=== PATIENT | female | born 1995 | race African-American/Black ===

== ENCOUNTER 2021-06-16 07:40 | Inpatient (IN) ==
[2021-06-16] MEDS ORDERED: ACETAMINOPHEN 500 MG TABLET PO STA (08:08)
[2021-06-16 08:46] LABS: Bilirubin,Urine Negative (Negative); Blood, Urine Small mg/dL (Negative); Glucose,Urine (UA) Negative (Negative); Ketones,Urine Negative (Negative); Mucus,Urine Many /LPF (Occasional); Nitrite,Urine Negative (Negative); Protein,Urine >=500 MG/DL; RBC,Urine 20 /HPF (0-4); Squamous Epithelial Cell,Urine Occasional /HPF (0-10); Urine Appearance CLOUDY (Clear); Urine Color Amber (Yellow); Urine Urobilinogen < 2.0 EU/DL (<2.0)
[2021-06-16] MEDS ORDERED: LEVOFLOXACIN INJ 500 MG/100 ML PREMIX IV ONE (09:05)
[2021-06-16] MEDS ORDERED: methylPREDNISolone SOD SUC 125 MG/2 ML VIAL IV STA (09:05)
[2021-06-16 09:59] LABS: Barbiturates Screen,Urine Negative (Negative); Benzodiazepines Screen,Urine Negative (Negative); Cannabinoid Screen,Urine Positive (Negative); Opiate Screen,Urine Negative (Negative); Phencyclidine Screen,Urine Negative (Negative)
[2021-06-16 10:08] LABS: Basophils % 0.2 % (0.0-0.8); Hematocrit 32.9 VOL% (35.7-47.0); Hemoglobin 10.6 GM/DL (12.0-16.0); Immature Granulocytes % 0.7 %; Immature Granulocytes Absolute 0.06 #; Lymphocytes # 0.3 10*3/uL (1.4-4.0); Lymphocytes % 3.2 % (21.3-54.2); Mean Corpuscular HGB Conc 32.2 GM/DL (32-36); Mean Corpuscular Volume 80.4 FL (87-102); Mean Platelet Volume 12.1 FL (9.6-12.0); Monocytes % 3.8 % (1.7-12.7); Neutrophils % 92.1 % (38.7-73.9); Platelet Count 123 T/CUMM (130-400); Red Blood Count 4.09 MC/CUMM (3.8-5.5); Red Cell Distribution Width 13.7 % (9.3-17.3); White Blood Count 8.1 T/CUMM (4-12)
[2021-06-16] MEDS ORDERED: ACETAMINOPHEN 325 MG TABLET PO PRN (10:16)
[2021-06-16] MEDS ORDERED: GLUCAGON 1 MG VIAL IM PRN (10:16)
[2021-06-16] MEDS ORDERED: DEXTROSE 50% 25 GM/50 ML SYRINGE IV PRN (10:16)
[2021-06-16] MEDS ORDERED: ONDANSETRON 4 MG/2 ML VIAL IV PRN (10:16)
[2021-06-16 10:30] LABS: Albumin 2.2 G/DL (3.4-5.0); Calcium 9.5 MG/DL (8.5-10.1); Osmolality,Calculated 263.7 MOS/KG (273-304); Potassium 3.5 MMOL/L (3.5-5.1); Total Protein 7.2 G/DL (6.4-8.2)
[2021-06-16 10:31] LABS: Band Neutrophils 13 % (0-10); Hypochromia 2+; Lymphocytes 1 % (20-55); Metamyelocytes 1 %; Microcytosis 1+; Platelet Estimate Adequate; Segmented Neutrophils 81 % (50-85); Total Cells Counted 100
[2021-06-16] MEDS ORDERED: LEVOFLOXACIN INJ 250 MG/50 ML PREMIX IV STA (12:24)
[2021-06-16] MEDS: ENOXAPARIN 40 MG/0.4 ML SYRINGE SUBCUT SCH (12:30)
[2021-06-16] MEDS: LACTATED RINGERS 1,000 ML IV SCH (12:30)
[2021-06-16] MEDS ORDERED: AZITHROMYCIN INJ 500 MG in SODIUM CHLORIDE 0.9% 250 ML IV STA (13:07)
[2021-06-16] MEDS: cefTRIAXone 1,000 MG in SODIUM CHLORIDE 0.9% 100 ML IV SCH (13:42)
[2021-06-16 15:15] LABS: Basophils % 0.2 % (0.0-0.8); Hematocrit 28.1 VOL% (35.7-47.0); Hemoglobin 8.9 GM/DL (12.0-16.0); Immature Granulocytes % 0.8 %; Immature Granulocytes Absolute 0.08 #; Lymphocytes # 0.3 10*3/uL (1.4-4.0); Lymphocytes % 2.8 % (21.3-54.2); Mean Corpuscular HGB Conc 31.7 GM/DL (32-36); Mean Corpuscular Volume 79.8 FL (87-102); Mean Platelet Volume 11.6 FL (9.6-12.0); Neutrophils % 93.2 % (38.7-73.9); Platelet Count 138 T/CUMM (130-400); Red Blood Count 3.52 MC/CUMM (3.8-5.5); Red Cell Distribution Width 13.6 % (9.3-17.3); White Blood Count 9.8 T/CUMM (4-12)
[2021-06-16 16:03] LABS: Folate 5.62 NG/ML (5.38-24.0); Vitamin B12 810 PG/ML (211-911)
[2021-06-16] MEDS: OSELTAMIVIR 75 MG CAPSULE PO SCH ×2 (16:20→20:29)
[2021-06-16] MEDS: methylPREDNISolone SOD SUC 40 MG/1 ML VIAL IV SCH (17:58)
[2021-06-16 18:09] LABS: Band Neutrophils 3 % (0-10); Hypochromia 1+; Microcytosis 1+; Myelocytes 1 %; Segmented Neutrophils 94 % (50-85); Total Cells Counted 100
[2021-06-16 18:10] LABS: Platelet Estimate Increased
[2021-06-16] MEDS: guaiFENesin/DM ER 600-30 MG TABLET PO PRN (19:05)
[2021-06-16 19:23] LABS: Sedimentation Rate-Westergren 118 MM/HR (0-20)
[2021-06-16] MEDS: HYDROXYCHLOROQUINE 200 MG TABLET PO SCH (20:31)
[2021-06-17] MEDS: methylPREDNISolone SOD SUC 40 MG/1 ML VIAL IV SCH ×3 (01:13→16:45)
[2021-06-17] MEDS: LACTATED RINGERS 1,000 ML IV SCH ×3 (02:25→13:36)
[2021-06-17 05:30] LABS: Basophils # 0.1 10*3/uL (0.0-0.2); Basophils % 0.4 % (0.0-0.8); Hematocrit 27.2 VOL% (35.7-47.0); Hemoglobin 8.9 GM/DL (12.0-16.0); Immature Granulocytes % 1.7 %; Immature Granulocytes Absolute 0.25 #; Lymphocytes # 0.5 10*3/uL (1.4-4.0); Lymphocytes % 3.3 % (21.3-54.2); Mean Corpuscular HGB Conc 32.7 GM/DL (32-36); Mean Platelet Volume 12.3 FL (9.6-12.0); Monocytes % 4.2 % (1.7-12.7); Neutrophils % 90.4 % (38.7-73.9); Platelet Count 143 T/CUMM (130-400); Red Cell Distribution Width 13.8 % (9.3-17.3); White Blood Count 14.4 T/CUMM (4-12)
[2021-06-17 05:45] LABS: Calcium 9.2 MG/DL (8.5-10.1); Osmolality,Calculated 274.8 MOS/KG (273-304); Potassium 4.2 MMOL/L (3.5-5.1)
[2021-06-17 06:01] LABS: Band Neutrophils 2 % (0-10); Hypochromia 1+; Lymphocytes 4 % (20-55); Microcytosis 1+; Platelet Estimate Adequate; Segmented Neutrophils 91 % (50-85); Total Cells Counted 100
[2021-06-17 08:34] LABS: Hemoglobin A1 (Alkaline) 97.6 % (96.5-98.5); Hemoglobin A2 (Alkaline) 2.4 % (1.5-3.5)
[2021-06-17] MEDS: OSELTAMIVIR 75 MG CAPSULE PO SCH ×2 (11:05→20:27)
[2021-06-17] MEDS: ENOXAPARIN 40 MG/0.4 ML SYRINGE SUBCUT SCH (11:05)
[2021-06-17] MEDS: HYDROXYCHLOROQUINE 200 MG TABLET PO SCH ×3 (11:05→20:28)
[2021-06-17] MEDS: PANTOPRAZOLE 40 MG TABLET PO SCH (12:22)
[2021-06-17] MEDS: cefTRIAXone 1,000 MG in SODIUM CHLORIDE 0.9% 100 ML IV SCH (12:30)
[2021-06-17] MEDS ORDERED: LEVOFLOXACIN INJ 750 MG/150 ML PREMIX IV SCH (12:30)
[2021-06-17] MEDS: AZITHROMYCIN INJ 500 MG in SODIUM CHLORIDE 0.9% 250 ML IV SCH (16:45)
[2021-06-18] MEDS: methylPREDNISolone SOD SUC 40 MG/1 ML VIAL IV SCH ×3 (01:54→20:49)
[2021-06-18] MEDS: guaiFENesin/DM ER 600-30 MG TABLET PO PRN ×2 (04:26→19:28)
[2021-06-18 06:03] LABS: Basophils % 0.3 % (0.0-0.8); Hematocrit 27.1 VOL% (35.7-47.0); Hemoglobin 8.7 GM/DL (12.0-16.0); Immature Granulocytes % 3.3 %; Lymphocytes # 0.5 10*3/uL (1.4-4.0); Lymphocytes % 3.5 % (21.3-54.2); Mean Corpuscular HGB Conc 32.1 GM/DL (32-36); Mean Corpuscular Volume 80.4 FL (87-102); Mean Platelet Volume 12.5 FL (9.6-12.0); Monocytes % 5.4 % (1.7-12.7); NRBC # 0.03 10*3/uL; Neutrophils % 87.5 % (38.7-73.9); Platelet Count 171 T/CUMM (130-400); Red Blood Count 3.37 MC/CUMM (3.8-5.5); Red Cell Distribution Width 14.2 % (9.3-17.3); White Blood Count 15.2 T/CUMM (4-12)
[2021-06-18 06:19] LABS: Calcium 9.3 MG/DL (8.5-10.1); Osmolality,Calculated 271.2 MOS/KG (273-304); Potassium 3.8 MMOL/L (3.5-5.1)
[2021-06-18 07:34] LABS: Lymphocytes 3 % (20-55); Metamyelocytes 1 %; Segmented Neutrophils 91 % (50-85); Total Cells Counted 100
[2021-06-18 07:35] LABS: Hypochromia 2+; Polychromasia Slight
[2021-06-18 07:38] LABS: Target Cells Few
[2021-06-18 07:44] LABS: Atypical Lymphocytes S; Platelet Estimate Adequate
[2021-06-18] MEDS: PANTOPRAZOLE 40 MG TABLET PO SCH (09:24)
[2021-06-18] MEDS: OSELTAMIVIR 75 MG CAPSULE PO SCH ×2 (09:24→20:48)
[2021-06-18] MEDS: HYDROXYCHLOROQUINE 200 MG TABLET PO SCH ×4 (09:24→21:50)
[2021-06-18] MEDS: ENOXAPARIN 40 MG/0.4 ML SYRINGE SUBCUT SCH (11:59)
[2021-06-18] MEDS: cefTRIAXone 1,000 MG in SODIUM CHLORIDE 0.9% 100 ML IV SCH (13:09)
[2021-06-18] MEDS: AZITHROMYCIN INJ 500 MG in SODIUM CHLORIDE 0.9% 250 ML IV SCH (14:45)
[2021-06-18] MEDS: ALBUTEROL/IPRATROPIUM 3 ML NEB RESP TX PRN ×2 (15:51→23:17)
[2021-06-18] MEDS: LACTATED RINGERS 1,000 ML IV SCH (18:01)
[2021-06-19 05:06] LABS: Basophils # 0.1 10*3/uL (0.0-0.2); Basophils % 0.4 % (0.0-0.8); Eosinophils % 0.1 % (0.00-10.9); Hematocrit 27.3 VOL% (35.7-47.0); Hemoglobin 8.6 GM/DL (12.0-16.0); Immature Granulocytes % 7.3 %; Immature Granulocytes Absolute 1.39 #; Lymphocytes # 0.9 10*3/uL (1.4-4.0); Lymphocytes % 4.9 % (21.3-54.2); Mean Corpuscular HGB Conc 31.5 GM/DL (32-36); Mean Platelet Volume 11.9 FL (9.6-12.0); Monocytes % 5.4 % (1.7-12.7); NRBC # 0.02 10*3/uL; Neutrophils % 81.9 % (38.7-73.9); Platelet Count 191 T/CUMM (130-400); Red Blood Count 3.37 MC/CUMM (3.8-5.5); Red Cell Distribution Width 14.6 % (9.3-17.3); White Blood Count 19.1 T/CUMM (4-12)
[2021-06-19 05:26] LABS: Calcium 9.2 MG/DL (8.5-10.1); Potassium 3.9 MMOL/L (3.5-5.1)
[2021-06-19 05:27] LABS: Band Neutrophils 1 % (0-10); Lymphocytes 5 % (20-55); Platelet Estimate Adequate; Segmented Neutrophils 90 % (50-85); Total Cells Counted 100
[2021-06-19 05:28] LABS: Hypochromia 1+; Microcytosis 1+
[2021-06-19] MEDS: OSELTAMIVIR 75 MG CAPSULE PO SCH (10:24)
[2021-06-19] MEDS: PANTOPRAZOLE 40 MG TABLET PO SCH (10:24)
[2021-06-19] MEDS: methylPREDNISolone SOD SUC 40 MG/1 ML VIAL IV SCH ×2 (10:27→10:51)
[2021-06-19] MEDS: HYDROXYCHLOROQUINE 200 MG TABLET PO SCH ×2 (10:29)
[2021-06-19 12:15] VITALS: BP 133/73
[2021-06-19] MEDS: ENOXAPARIN 40 MG/0.4 ML SYRINGE SUBCUT SCH (13:26)
== END 2021-06-19 14:50 | disposition home or self-care (01) | DRG 194 ==
LOC: N.ED 07:40 → SUATTDRO 10:16 → N.EDINP 10:16 → N.3E 14:45
PROVIDERS: ADMIT Internal Medicine; ATTEND Internal Medicine

== ENCOUNTER 2021-06-21 09:47 | Inpatient (IN) ==
[2021-06-21] MEDS ORDERED: ALBUTEROL/IPRATROPIUM 3 ML NEB RESP TX STA (13:02)
[2021-06-21] MEDS ORDERED: methylPREDNISolone SOD SUC 125 MG/2 ML VIAL IV STA (13:02)
[2021-06-21 13:14] LABS: Basophils # 0.2 10*3/uL (0.0-0.2); Basophils % 0.4 % (0.0-0.8); Eosinophils # 0.2 10*3/uL (0.0-0.87); Eosinophils % 0.6 % (0.00-10.9); Hematocrit 30.3 VOL% (35.7-47.0); Hemoglobin 9.8 GM/DL (12.0-16.0); Immature Granulocytes % 16.9 %; Immature Granulocytes Absolute 6.04 #; Lymphocytes # 2.1 10*3/uL (1.4-4.0); Lymphocytes % 5.9 % (21.3-54.2); Mean Corpuscular HGB Conc 32.3 GM/DL (32-36); Mean Corpuscular Volume 78.9 FL (87-102); Mean Platelet Volume 10.7 FL (9.6-12.0); Monocytes % 5.4 % (1.7-12.7); NRBC # 0.18 10*3/uL; Neutrophils % 70.8 % (38.7-73.9); Platelet Count 194 T/CUMM (130-400); Red Blood Count 3.84 MC/CUMM (3.8-5.5); Red Cell Distribution Width 14.6 % (9.3-17.3)
[2021-06-21 13:17] LABS: White Blood Count 35.8 T/CUMM (4-12)
[2021-06-21 13:40] LABS: Albumin 1.7 G/DL (3.4-5.0); Bilirubin,Total 0.6 MG/DL (0.20-1.00); Calcium 8.8 MG/DL (8.5-10.1); Osmolality,Calculated 266.2 MOS/KG (273-304); Potassium 3.1 MMOL/L (3.5-5.1)
[2021-06-21 14:13] LABS: Band Neutrophils 5 % (0-10); Dohle Bodies Slight; Lymphocytes 10 % (20-55); Metamyelocytes 5 %; Myelocytes 3 %; Nucleated Red Blood Cells 2 (0-5); Segmented Neutrophils 75 % (50-85); Total Cells Counted 100
[2021-06-21 14:14] LABS: Giant Platelets Few; Hypochromia 1+; Polychromasia Few
[2021-06-21 14:15] LABS: Microcytosis 1+; Schistocytes Slight
[2021-06-21 14:16] LABS: Atypical Lymphocytes Few; Ovalocytes Slight; Platelet Estimate Normal; Smudge Cells Few; Target Cells Slight
[2021-06-21 14:17] LABS: Barbiturates Screen,Urine Negative (Negative); Benzodiazepines Screen,Urine Negative (Negative); Cannabinoid Screen,Urine Positive (Negative); Opiate Screen,Urine Negative (Negative); Phencyclidine Screen,Urine Negative (Negative)
[2021-06-21] MEDS ORDERED: VANCOMYCIN INJ 1,000 MG in SODIUM CHLORIDE 0.9% 250 ML IV ONE ×2 (14:25→15:00)
[2021-06-21] MEDS ORDERED: GLUCAGON 1 MG VIAL IM PRN (14:40)
[2021-06-21] MEDS ORDERED: hydrALAZINE 20 MG/1 ML VIAL IV PRN (14:40)
[2021-06-21] MEDS ORDERED: guaiFENesin/DM ER 600-30 MG TABLET PO PRN (14:40)
[2021-06-21] MEDS ORDERED: ONDANSETRON 4 MG/2 ML VIAL IV PRN (14:40)
[2021-06-21] MEDS ORDERED: ACETAMINOPHEN 325 MG TABLET PO PRN (14:40)
[2021-06-21] MEDS ORDERED: DEXTROSE 50% 25 GM/50 ML SYRINGE IV PRN (14:40)
[2021-06-21] MEDS: SODIUM CHLORIDE 0.9% 1,000 ML IV SCH (15:18)
[2021-06-21] MEDS ORDERED: POTASSIUM CHLORIDE 20 MEQ TABLET PO ONE ×2 (16:39→21:00)
[2021-06-21] MEDS: ENOXAPARIN 40 MG/0.4 ML SYRINGE SUBCUT SCH (16:55)
[2021-06-21] MEDS: PIPERACILLIN/TAZOBACTAM 3,375 MG in SODIUM CHLORIDE 0.9% 100 ML IV SCH (16:57)
[2021-06-21] MEDS: INDOMETHACIN 25 MG CAPSULE PO SCH ×2 (17:17→23:18)
[2021-06-21] MEDS: COLCHICINE 0.6 MG CAPSULE PO SCH ×2 (17:17→23:03)
[2021-06-21 18:08] LABS: ABG Base Excess 3.3 MMOL/L (-2.5-2.5); ABG HCO3 27.2 MMOL/L (20-26); ABG Oxygen Saturation 92.6 % (95-100); ABG PCO2 35.7 MM HG (35-48); ABG PH 7.481 (7.35-7.45); ABG PO2 65.8 MM HG (80-95)
[2021-06-21] MEDS: OSELTAMIVIR 75 MG CAPSULE PO SCH (23:03)
[2021-06-21] MEDS: methylPREDNISolone SOD SUC 40 MG/1 ML VIAL IV SCH (23:04)
[2021-06-22] MEDS: ALBUTEROL 2.5 MG/3 ML NEB RESP TX SCH ×5 (00:05→19:29)
[2021-06-22] MEDS: PIPERACILLIN/TAZOBACTAM 3,375 MG in SODIUM CHLORIDE 0.9% 100 ML IV SCH ×3 (01:16→16:22)
[2021-06-22] MEDS: methylPREDNISolone SOD SUC 40 MG/1 ML VIAL IV SCH ×3 (05:39→21:45)
[2021-06-22 05:44] LABS: Basophils # 0.1 10*3/uL (0.0-0.2); Basophils % 0.4 % (0.0-0.8); Eosinophils % 0.1 % (0.00-10.9); Hematocrit 27.3 VOL% (35.7-47.0); Hemoglobin 8.8 GM/DL (12.0-16.0); Immature Granulocytes % 10.7 %; Immature Granulocytes Absolute 4.21 #; Lymphocytes # 1.4 10*3/uL (1.4-4.0); Lymphocytes % 3.6 % (21.3-54.2); Mean Corpuscular HGB Conc 32.2 GM/DL (32-36); Mean Corpuscular Volume 79.4 FL (87-102); Mean Platelet Volume 11.4 FL (9.6-12.0); Monocytes % 3.4 % (1.7-12.7); NRBC # 0.07 10*3/uL; Neutrophils % 81.8 % (38.7-73.9); Platelet Count 205 T/CUMM (130-400); Red Blood Count 3.44 MC/CUMM (3.8-5.5); Red Cell Distribution Width 14.8 % (9.3-17.3); White Blood Count 39.3 T/CUMM (4-12)
[2021-06-22 05:50] LABS: INR 1.2
[2021-06-22 06:03] LABS: Calcium 8.4 MG/DL (8.5-10.1); Osmolality,Calculated 275.1 MOS/KG (273-304); Potassium 4.4 MMOL/L (3.5-5.1)
[2021-06-22] MEDS: VANCOMYCIN INJ 1,250 MG in SODIUM CHLORIDE 0.9% 250 ML IV SCH ×2 (06:17→21:50)
[2021-06-22 06:18] LABS: Albumin 1.7 G/DL (3.4-5.0); Bilirubin,Total 0.4 MG/DL (0.20-1.00); Osmolality,Calculated 278.8 MOS/KG (273-304); Potassium 4.5 MMOL/L (3.5-5.1); Risk Ratio 4.93; Thyroid Stimulating Hormone 0.943 uIU/ml (0.358-3.74); Total Protein 5.6 G/DL (6.4-8.2); VLDL Cholesterol 28.2 MG/DL
[2021-06-22 06:21] LABS: Anisocytosis 1+; Band Neutrophils 19 % (0-10); Lymphocytes 10 % (20-55); Metamyelocytes 3 %; Myelocytes 1 %; Nucleated Red Blood Cells 1 (0-5); Platelet Estimate Normal; Segmented Neutrophils 65 % (50-85); Total Cells Counted 100
[2021-06-22] MEDS: INDOMETHACIN 25 MG CAPSULE PO SCH ×3 (08:43→21:45)
[2021-06-22] MEDS: LEVOFLOXACIN INJ 750 MG/150 ML PREMIX IV SCH (08:43)
[2021-06-22] MEDS: COLCHICINE 0.6 MG CAPSULE PO SCH ×2 (08:43→21:44)
[2021-06-22] MEDS: OSELTAMIVIR 75 MG CAPSULE PO SCH ×2 (08:44→21:45)
[2021-06-22] MEDS: PANTOPRAZOLE 40 MG TABLET PO SCH (08:44)
[2021-06-22 10:00] LABS: HIV Antigen/Antibody Result Nonreactive (Nonreactive)
[2021-06-22 12:21] LABS: Lymphocytes,Pleural Fluid 17 %; Monocytes,Pleural Fluid 8 %; Neutrophils,Pleural Fluid 75 %; RBC,Pleural Fluid 33781 T/CUMM
[2021-06-22 12:36] LABS: Amylase,Pleural Fluid 9 U/L; Glucose,Pleural Fluid 161 MG/DL; LDH,Pleural Fluid 1328 U/L; Total Protein,Pleural Fluid 2.8 G/DL
[2021-06-22] MEDS: SODIUM CHLORIDE 0.9% 1,000 ML IV SCH (14:05)
[2021-06-22 16:01] LABS: Amorphous Crystals,Urine Occasional /HPF (Few); Bacteria,Urine Occasional /HPF (Few); Bilirubin,Urine Negative (Negative); Blood, Urine Moderate mg/dL (Negative); Glucose,Urine (UA) Negative (Negative); Hyaline Casts,Urine 1 /LPF (0-3); Ketones,Urine Negative (Negative); Mucus,Urine Occasional /LPF (Occasional); Nitrite,Urine Negative (Negative); Protein,Urine 100 MG/DL; RBC,Urine 24 /HPF (0-4); Squamous Epithelial Cell,Urine Occasional /HPF (0-10); Urine Appearance Slightly Hazy (Clear); Urine Color Yellow (Yellow); Urine Specific Gravity 1.012 (1.001-1.035); Urine Urobilinogen < 2.0 EU/DL (<2.0)
[2021-06-22] MEDS: ENOXAPARIN 40 MG/0.4 ML SYRINGE SUBCUT SCH (16:21)
[2021-06-23] MEDS: ALBUTEROL 2.5 MG/3 ML NEB RESP TX SCH ×4 (01:12→19:30)
[2021-06-23] MEDS: PIPERACILLIN/TAZOBACTAM 3,375 MG in SODIUM CHLORIDE 0.9% 100 ML IV SCH ×3 (01:34→17:58)
[2021-06-23] MEDS: SODIUM CHLORIDE 0.9% 1,000 ML IV SCH (03:04)
[2021-06-23] MEDS: methylPREDNISolone SOD SUC 40 MG/1 ML VIAL IV SCH ×3 (05:48→21:50)
[2021-06-23] MEDS: VANCOMYCIN INJ 1,250 MG in SODIUM CHLORIDE 0.9% 250 ML IV SCH ×2 (07:25→21:50)
[2021-06-23 08:22] LABS: Osmolality,Calculated 274.1 MOS/KG (273-304); Potassium 3.9 MMOL/L (3.5-5.1)
[2021-06-23 08:44] LABS: Albumin 1.3 G/DL (3.4-5.0); Bilirubin,Total 0.4 MG/DL (0.20-1.00); Calcium 7.9 MG/DL (8.5-10.1); Osmolality,Calculated 276.8 MOS/KG (273-304); Total Protein 5.7 G/DL (6.4-8.2)
[2021-06-23] MEDS: IBUPROFEN 400 MG TABLET PO SCH ×3 (09:22→21:49)
[2021-06-23] MEDS: PANTOPRAZOLE 40 MG TABLET PO SCH (09:22)
[2021-06-23] MEDS: OSELTAMIVIR 75 MG CAPSULE PO SCH ×2 (09:22→21:49)
[2021-06-23] MEDS: COLCHICINE 0.6 MG CAPSULE PO SCH ×2 (09:22→21:50)
[2021-06-23] MEDS: LEVOFLOXACIN INJ 750 MG/150 ML PREMIX IV SCH (09:34)
[2021-06-23 10:51] LABS: Basophils # 0.1 10*3/uL (0.0-0.2); Basophils % 0.3 % (0.0-0.8); Hematocrit 24.8 VOL% (35.7-47.0); Immature Granulocytes % 12.8 %; Immature Granulocytes Absolute 4.33 #; Lymphocytes # 1.2 10*3/uL (1.4-4.0); Lymphocytes % 3.6 % (21.3-54.2); Mean Corpuscular HGB Conc 32.3 GM/DL (32-36); Monocytes % 3.4 % (1.7-12.7); NRBC # 0.07 10*3/uL; Neutrophils % 79.9 % (38.7-73.9); Platelet Count 205 T/CUMM (130-400); Red Cell Distribution Width 15.2 % (9.3-17.3); White Blood Count 33.9 T/CUMM (4-12)
[2021-06-23 11:11] LABS: Band Neutrophils 19 % (0-10); Lymphocytes 6 % (20-55); Myelocytes 2 %; Nucleated Red Blood Cells 1 (0-5); Platelet Estimate Normal; Segmented Neutrophils 72 % (50-85); Total Cells Counted 100
[2021-06-23 11:12] LABS: Anisocytosis 1+; Smudge Cells Few
[2021-06-23 11:55] LABS: Sedimentation Rate-Westergren 120 MM/HR (0-20)
[2021-06-23 14:40] LABS: CEA, Pleural Fluid 1.4 ng/mL
[2021-06-23 17:19] LABS: Creatinine,Urine Random 39 MG/DL; Total Protein,Urine Random 76 MG/DL
[2021-06-23] MEDS: ALUMINUM/MAGNES/SIMETH MAX STR 30 ML UDCUP PO PRN (18:01)
[2021-06-23 23:36] LABS: Fungitell Quantitative Value < 31 pg/mL (<60 pg/mL)
[2021-06-24] MEDS: PIPERACILLIN/TAZOBACTAM 3,375 MG in SODIUM CHLORIDE 0.9% 100 ML IV SCH ×3 (00:29→15:57)
[2021-06-24] MEDS: methylPREDNISolone SOD SUC 40 MG/1 ML VIAL IV SCH ×3 (04:16→21:45)
[2021-06-24 04:40] LABS: Basophils # 0.1 10*3/uL (0.0-0.2); Basophils % 0.3 % (0.0-0.8); Immature Granulocytes % 11.9 %; Immature Granulocytes Absolute 3.43 #; Lymphocytes # 1.2 10*3/uL (1.4-4.0); Lymphocytes % 4.1 % (21.3-54.2); Mean Corpuscular Volume 81.2 FL (87-102); Mean Platelet Volume 11.2 FL (9.6-12.0); NRBC # 0.08 10*3/uL; Neutrophils % 79.7 % (38.7-73.9); Platelet Count 231 T/CUMM (130-400); Red Blood Count 3.08 MC/CUMM (3.8-5.5); Red Cell Distribution Width 15.1 % (9.3-17.3); White Blood Count 28.9 T/CUMM (4-12)
[2021-06-24 04:52] LABS: Osmolality,Calculated 283.4 MOS/KG (273-304)
[2021-06-24] MEDS: ALBUTEROL 2.5 MG/3 ML NEB RESP TX SCH ×4 (04:52→19:45)
[2021-06-24 05:09] LABS: Band Neutrophils 3 % (0-10); Hypochromia 1+; Lymphocytes 6 % (20-55); Microcytosis 1+; Platelet Estimate Adequate; Segmented Neutrophils 87 % (50-85); Total Cells Counted 100
[2021-06-24 05:39] LABS: Sedimentation Rate-Westergren 105 MM/HR (0-20)
[2021-06-24] MEDS: SODIUM CHLORIDE 0.9% 1,000 ML IV SCH ×2 (06:30→09:35)
[2021-06-24] MEDS ORDERED: TALC INTRAPLEURAL POWDER 3 GM VIAL INTRAPLEUR ONE (07:19)
[2021-06-24] MEDS: PANTOPRAZOLE 40 MG TABLET PO SCH (08:05)
[2021-06-24] MEDS: IBUPROFEN 400 MG TABLET PO SCH ×3 (08:05→21:41)
[2021-06-24] MEDS: OSELTAMIVIR 75 MG CAPSULE PO SCH ×2 (08:05→21:40)
[2021-06-24] MEDS: COLCHICINE 0.6 MG CAPSULE PO SCH ×2 (08:05→21:40)
[2021-06-24] MEDS: LEVOFLOXACIN INJ 750 MG/150 ML PREMIX IV SCH (09:29)
[2021-06-24] MEDS ORDERED: ROCURONIUM 50 MG/5 ML VIAL IV ONE (09:32)
[2021-06-24] MEDS ORDERED: LIDOCAINE 2% 5 ML VIAL ONE (09:32)
[2021-06-24] MEDS ORDERED: SEVOFLURANE 1 UNIT/15 MINUTE INH ONE ×4 (09:32→13:17)
[2021-06-24] MEDS ORDERED: SUCCINYLCHOLINE 200 MG/10 ML VIAL ONE (09:32)
[2021-06-24] MEDS ORDERED: propofoL 200 MG/20 ML VIAL IV ONE (09:32)
[2021-06-24] MEDS ORDERED: fentaNYL 250 MCG/5 ML VIAL ONE (09:33)
[2021-06-24] MEDS ORDERED: MIDAZOLAM 2 MG/2 ML VIAL ONE (09:34)
[2021-06-24] MEDS ORDERED: LIDOCAINE 1%/EPI INJ 20 ML VIAL ONE (10:18)
[2021-06-24] MEDS ORDERED: BUPIVACAINE MPF 0.25% 30 ML VIAL ONE (10:18)
[2021-06-24 11:01] LABS: M. Tuberculosis PCR Result Negative (Negative); M. Tuberculosis PCR Source PLEURAL FLUID
[2021-06-24] MEDS ORDERED: SUGAMMADEX 200 MG/2 ML VIAL IV ONE (12:53)
[2021-06-24] MEDS ORDERED: HYDROmorphone 2 MG/1 ML VIAL ONE (13:17)
[2021-06-24 13:33] LABS: Bacteria,Urine Occasional /HPF (Few); Bilirubin,Urine Negative (Negative); Blood, Urine Negative (Negative); Glucose,Urine (UA) Negative (Negative); Ketones,Urine Negative (Negative); Mucus,Urine Occasional /LPF (Occasional); Nitrite,Urine Negative (Negative); Protein,Urine 100 MG/DL; RBC,Urine 2 /HPF (0-4); Squamous Epithelial Cell,Urine Occasional /HPF (0-10); Urine Appearance CLEAR (Clear); Urine Color Yellow (Yellow); Urine Urobilinogen < 2.0 EU/DL (<2.0)
[2021-06-24] MEDS ORDERED: ALBUTEROL/IPRATROPIUM 3 ML NEB RESP TX PRN (13:33)
[2021-06-24] MEDS ORDERED: KETOROLAC 15 MG/1 ML VIAL IV PRN (13:33)
[2021-06-24] MEDS ORDERED: HYDROmorphone 2 MG/1 ML VIAL IV PRN (13:33)
[2021-06-24] MEDS: VANCOMYCIN INJ 1,250 MG in SODIUM CHLORIDE 0.9% 250 ML IV SCH ×2 (14:46→22:14)
[2021-06-25] MEDS: PIPERACILLIN/TAZOBACTAM 3,375 MG in SODIUM CHLORIDE 0.9% 100 ML IV SCH ×3 (00:56→15:38)
[2021-06-25] MEDS: ALBUTEROL 2.5 MG/3 ML NEB RESP TX SCH ×4 (01:00→19:25)
[2021-06-25 05:51] LABS: Basophils # 0.1 10*3/uL (0.0-0.2); Basophils % 0.4 % (0.0-0.8); Hematocrit 27.1 VOL% (35.7-47.0); Hemoglobin 8.4 GM/DL (12.0-16.0); Immature Granulocytes % 8.7 %; Immature Granulocytes Absolute 1.95 #; Lymphocytes # 1.1 10*3/uL (1.4-4.0); Mean Corpuscular Volume 82.6 FL (87-102); Mean Platelet Volume 11.3 FL (9.6-12.0); Monocytes % 4.2 % (1.7-12.7); NRBC # 0.03 10*3/uL; Neutrophils % 81.7 % (38.7-73.9); Platelet Count 218 T/CUMM (130-400); Red Blood Count 3.28 MC/CUMM (3.8-5.5); Red Cell Distribution Width 15.4 % (9.3-17.3); White Blood Count 22.5 T/CUMM (4-12)
[2021-06-25 06:14] LABS: Calcium 7.9 MG/DL (8.5-10.1); Osmolality,Calculated 280.5 MOS/KG (273-304); Potassium 4.2 MMOL/L (3.5-5.1)
[2021-06-25] MEDS: methylPREDNISolone SOD SUC 40 MG/1 ML VIAL IV SCH ×3 (06:21→20:40)
[2021-06-25 06:29] LABS: Hypochromia Slight; Lymphocytes 11 % (20-55); Microcytosis Slight; Platelet Estimate Normal; Segmented Neutrophils 84 % (50-85); Total Cells Counted 100
[2021-06-25 07:05] LABS: Sedimentation Rate-Westergren 81 MM/HR (0-20)
[2021-06-25] MEDS: OSELTAMIVIR 75 MG CAPSULE PO SCH ×2 (09:29→20:38)
[2021-06-25] MEDS: COLCHICINE 0.6 MG CAPSULE PO SCH ×2 (09:29→20:38)
[2021-06-25] MEDS: IBUPROFEN 400 MG TABLET PO SCH ×3 (09:29→20:38)
[2021-06-25] MEDS: LEVOFLOXACIN INJ 750 MG/150 ML PREMIX IV SCH (09:30)
[2021-06-25] MEDS: PANTOPRAZOLE 40 MG TABLET PO SCH (09:30)
[2021-06-25] MEDS: SODIUM CHLORIDE 0.9% 1,000 ML IV SCH ×3 (10:49→19:15)
[2021-06-25] MEDS: VANCOMYCIN INJ 1,250 MG in SODIUM CHLORIDE 0.9% 250 ML IV SCH ×2 (11:33→22:27)
[2021-06-26] MEDS: ALBUTEROL 2.5 MG/3 ML NEB RESP TX SCH ×4 (00:35→20:45)
[2021-06-26] MEDS: PIPERACILLIN/TAZOBACTAM 3,375 MG in SODIUM CHLORIDE 0.9% 100 ML IV SCH ×4 (00:45→23:01)
[2021-06-26] MEDS: methylPREDNISolone SOD SUC 40 MG/1 ML VIAL IV SCH ×3 (05:00→20:20)
[2021-06-26 06:23] LABS: Basophils # 0.1 10*3/uL (0.0-0.2); Basophils % 0.4 % (0.0-0.8); Hematocrit 27.2 VOL% (35.7-47.0); Hemoglobin 8.5 GM/DL (12.0-16.0); Immature Granulocytes Absolute 2.67 #; Lymphocytes # 1.5 10*3/uL (1.4-4.0); Lymphocytes % 5.5 % (21.3-54.2); Mean Corpuscular HGB Conc 31.3 GM/DL (32-36); Mean Corpuscular Volume 82.4 FL (87-102); Mean Platelet Volume 11.8 FL (9.6-12.0); Monocytes % 5.4 % (1.7-12.7); NRBC # 0.06 10*3/uL; Neutrophils % 78.7 % (38.7-73.9); Platelet Count 279 T/CUMM (130-400); Red Cell Distribution Width 15.4 % (9.3-17.3); White Blood Count 26.7 T/CUMM (4-12)
[2021-06-26 06:55] LABS: Calcium 8.2 MG/DL (8.5-10.1); Osmolality,Calculated 279.5 MOS/KG (273-304); Potassium 3.7 MMOL/L (3.5-5.1)
[2021-06-26 07:56] LABS: Hypochromia 2+; Lymphocytes 4 % (20-55); Metamyelocytes 4 %; Myelocytes 1 %; Nucleated Red Blood Cells 1 (0-5); Platelet Estimate Normal; Schistocytes Slight; Segmented Neutrophils 90 % (50-85); Stomatocytes Few; Tear Drop Cells Few; Total Cells Counted 100
[2021-06-26 09:51] LABS: Adenosine Deaminase Pleural Fl 35 U/L (0-30)
[2021-06-26] MEDS: IBUPROFEN 400 MG TABLET PO SCH ×3 (10:06→20:15)
[2021-06-26] MEDS: PANTOPRAZOLE 40 MG TABLET PO SCH (10:06)
[2021-06-26] MEDS: COLCHICINE 0.6 MG CAPSULE PO SCH ×2 (10:06→20:15)
[2021-06-26] MEDS: OSELTAMIVIR 75 MG CAPSULE PO SCH ×2 (10:06→20:15)
[2021-06-26] MEDS: SODIUM CHLORIDE 0.9% 1,000 ML IV SCH ×2 (11:57→21:50)
[2021-06-26] MEDS: VANCOMYCIN INJ 1,250 MG in SODIUM CHLORIDE 0.9% 250 ML IV SCH (14:09)
[2021-06-26] MEDS: LEVOFLOXACIN INJ 750 MG/150 ML PREMIX IV SCH (20:15)
[2021-06-26] MEDS ORDERED: HYDROcodone/HOMATROPINE 5 ML UDCUP PO ONE (21:38)
[2021-06-27] MEDS: ALBUTEROL 2.5 MG/3 ML NEB RESP TX SCH ×4 (00:09→19:52)
[2021-06-27] MEDS: VANCOMYCIN INJ 1,250 MG in SODIUM CHLORIDE 0.9% 250 ML IV SCH ×2 (02:59→14:43)
[2021-06-27] MEDS: methylPREDNISolone SOD SUC 40 MG/1 ML VIAL IV SCH ×2 (05:07→16:46)
[2021-06-27 05:35] LABS: Basophils # 0.1 10*3/uL (0.0-0.2); Basophils % 0.2 % (0.0-0.8); Eosinophils % 0.1 % (0.00-10.9); Hematocrit 26.7 VOL% (35.7-47.0); Hemoglobin 8.4 GM/DL (12.0-16.0); Immature Granulocytes Absolute 2.05 #; Lymphocytes # 1.1 10*3/uL (1.4-4.0); Lymphocytes % 3.9 % (21.3-54.2); Mean Corpuscular HGB Conc 31.5 GM/DL (32-36); Mean Corpuscular Volume 82.7 FL (87-102); Mean Platelet Volume 11.1 FL (9.6-12.0); Monocytes % 5.5 % (1.7-12.7); NRBC # 0.03 10*3/uL; Neutrophils % 83.3 % (38.7-73.9); Platelet Count 266 T/CUMM (130-400); Red Blood Count 3.23 MC/CUMM (3.8-5.5); Red Cell Distribution Width 15.3 % (9.3-17.3); White Blood Count 29.1 T/CUMM (4-12)
[2021-06-27 06:32] LABS: Calcium 7.8 MG/DL (8.5-10.1); Osmolality,Calculated 277.7 MOS/KG (273-304); Potassium 3.7 MMOL/L (3.5-5.1)
[2021-06-27 06:49] LABS: Sedimentation Rate-Westergren 30 MM/HR (0-20)
[2021-06-27] MEDS: PIPERACILLIN/TAZOBACTAM 3,375 MG in SODIUM CHLORIDE 0.9% 100 ML IV SCH ×3 (08:44→23:00)
[2021-06-27] MEDS: COLCHICINE 0.6 MG CAPSULE PO SCH ×2 (08:45→20:14)
[2021-06-27] MEDS: PANTOPRAZOLE 40 MG TABLET PO SCH (08:45)
[2021-06-27] MEDS: IBUPROFEN 400 MG TABLET PO SCH ×3 (08:45→20:15)
[2021-06-27 09:06] LABS: Band Neutrophils 3 % (0-10); Lymphocytes 2 % (20-55); Segmented Neutrophils 92 % (50-85); Total Cells Counted 100
[2021-06-27 09:07] LABS: Hypochromia Slight; Platelet Estimate Normal; Schistocytes Few; Tear Drop Cells Few
[2021-06-27] MEDS: SODIUM CHLORIDE 0.9% 1,000 ML IV SCH (10:49)
[2021-06-27 11:26] LABS: QuantiFERON-Tb Gold Pl Indeterminate (Negative); TB2 Ag Minus Result 0.01 IU/mL
[2021-06-27] MEDS ORDERED: diphenhydrAMINE CAP 25 MG CAPSULE PO PRN (13:05)
[2021-06-27] MEDS: LEVOFLOXACIN INJ 750 MG/150 ML PREMIX IV SCH (20:15)
[2021-06-28] MEDS: ALBUTEROL 2.5 MG/3 ML NEB RESP TX SCH ×4 (00:34→20:03)
[2021-06-28] MEDS: VANCOMYCIN INJ 1,250 MG in SODIUM CHLORIDE 0.9% 250 ML IV SCH ×2 (02:54→14:09)
[2021-06-28] MEDS: methylPREDNISolone SOD SUC 40 MG/1 ML VIAL IV SCH ×2 (04:01→17:23)
[2021-06-28 04:51] LABS: Basophils % 0.2 % (0.0-0.8); Eosinophils % 0.2 % (0.00-10.9); Hematocrit 24.8 VOL% (35.7-47.0); Hemoglobin 7.7 GM/DL (12.0-16.0); Immature Granulocytes Absolute 1.19 #; Lymphocytes % 4.8 % (21.3-54.2); Mean Corpuscular Volume 81.8 FL (87-102); Mean Platelet Volume 10.9 FL (9.6-12.0); Monocytes % 7.1 % (1.7-12.7); Neutrophils % 81.7 % (38.7-73.9); Platelet Count 250 T/CUMM (130-400); Red Blood Count 3.03 MC/CUMM (3.8-5.5); Red Cell Distribution Width 15.3 % (9.3-17.3); White Blood Count 19.8 T/CUMM (4-12)
[2021-06-28 05:11] LABS: Eosinophils 1 % (0-10); Lymphocytes 8 % (20-55); Promyelocytes 1 %; Segmented Neutrophils 84 % (50-85); Total Cells Counted 100
[2021-06-28 05:12] LABS: Hypochromia 1+; Microcytosis 1+; Ovalocytes Slight; Polychromasia Slight; Target Cells Slight
[2021-06-28 05:13] LABS: Platelet Estimate Normal
[2021-06-28 05:15] LABS: Osmolality,Calculated 279.5 MOS/KG (273-304); Potassium 3.4 MMOL/L (3.5-5.1)
[2021-06-28 06:00] LABS: Sedimentation Rate-Westergren 22 MM/HR (0-20)
[2021-06-28] MEDS: DOCUSATE SODIUM 100 MG CAPSULE PO PRN (08:07)
[2021-06-28] MEDS: PANTOPRAZOLE 40 MG TABLET PO SCH (08:07)
[2021-06-28] MEDS: COLCHICINE 0.6 MG CAPSULE PO SCH ×2 (08:07→21:02)
[2021-06-28] MEDS: ALUMINUM/MAGNES/SIMETH MAX STR 30 ML UDCUP PO PRN (08:07)
[2021-06-28] MEDS: OSELTAMIVIR 75 MG CAPSULE PO SCH (08:08)
[2021-06-28] MEDS: IBUPROFEN 400 MG TABLET PO SCH ×3 (08:08→21:02)
[2021-06-28] MEDS: PIPERACILLIN/TAZOBACTAM 3,375 MG in SODIUM CHLORIDE 0.9% 100 ML IV SCH ×3 (08:10→23:59)
[2021-06-28] MEDS: LEVOFLOXACIN INJ 750 MG/150 ML PREMIX IV SCH (21:04)
[2021-06-29] MEDS: ALBUTEROL 2.5 MG/3 ML NEB RESP TX SCH ×4 (00:25→19:39)
[2021-06-29] MEDS: VANCOMYCIN INJ 1,250 MG in SODIUM CHLORIDE 0.9% 250 ML IV SCH ×2 (03:31→14:03)
[2021-06-29] MEDS: methylPREDNISolone SOD SUC 40 MG/1 ML VIAL IV SCH ×2 (04:39→16:49)
[2021-06-29] MEDS: COLCHICINE 0.6 MG CAPSULE PO SCH ×2 (08:46→20:26)
[2021-06-29] MEDS: PANTOPRAZOLE 40 MG TABLET PO SCH (08:46)
[2021-06-29] MEDS: IBUPROFEN 400 MG TABLET PO SCH ×3 (08:46→20:26)
[2021-06-29] MEDS: HYDROmorphone 2 MG/1 ML VIAL IV PRN (14:10)
[2021-06-30] MEDS: ALBUTEROL 2.5 MG/3 ML NEB RESP TX SCH ×4 (00:22→19:48)
[2021-06-30] MEDS: VANCOMYCIN INJ 1,250 MG in SODIUM CHLORIDE 0.9% 250 ML IV SCH ×2 (01:54→15:37)
[2021-06-30] MEDS: methylPREDNISolone SOD SUC 40 MG/1 ML VIAL IV SCH ×2 (04:00→17:14)
[2021-06-30 07:24] LABS: Bilirubin,Urine Negative (Negative); Blood, Urine Moderate mg/dL (Negative); Glucose,Urine (UA) Negative (Negative); Hyaline Casts,Urine 2 /LPF (0-3); Ketones,Urine Negative (Negative); Mucus,Urine Occasional /LPF (Occasional); Nitrite,Urine Negative (Negative); Protein,Urine 100 MG/DL; RBC,Urine 3 /HPF (0-4); Squamous Epithelial Cell,Urine Occasional /HPF (0-10); Urine Appearance CLOUDY (Clear); Urine Color Yellow (Yellow); Urine Urobilinogen < 2.0 EU/DL (<2.0)
[2021-06-30 08:07] LABS: Microalbum/Creat Ratio Random 492.6 RATIO (0-30)
[2021-06-30] MEDS ORDERED: DOXYCYCLINE HYCLATE INJ 200 MG, LIDOCAINE 1% INJ 20 ML in STERILE WATER INJ 30 ML INTRAPLEUR ONE (09:18)
[2021-06-30] MEDS: PANTOPRAZOLE 40 MG TABLET PO SCH (09:23)
[2021-06-30] MEDS: IBUPROFEN 400 MG TABLET PO SCH ×3 (09:23→20:31)
[2021-06-30] MEDS: COLCHICINE 0.6 MG CAPSULE PO SCH ×2 (09:23→20:31)
[2021-06-30] MEDS: HYDROmorphone 2 MG/1 ML VIAL IV PRN (13:35)
[2021-07-01] MEDS: ALBUTEROL 2.5 MG/3 ML NEB RESP TX SCH ×4 (01:25→20:20)
[2021-07-01] MEDS: VANCOMYCIN INJ 1,250 MG in SODIUM CHLORIDE 0.9% 250 ML IV SCH ×2 (02:15→14:47)
[2021-07-01] MEDS: methylPREDNISolone SOD SUC 40 MG/1 ML VIAL IV SCH ×2 (06:05→16:39)
[2021-07-01 06:10] LABS: Basophils % 0.3 % (0.0-0.8); Eosinophils # 0.2 10*3/uL (0.0-0.87); Eosinophils % 1.4 % (0.00-10.9); Hematocrit 25.4 VOL% (35.7-47.0); Hemoglobin 8.1 GM/DL (12.0-16.0); Immature Granulocytes % 2.9 %; Immature Granulocytes Absolute 0.43 #; Lymphocytes # 0.7 10*3/uL (1.4-4.0); Lymphocytes % 4.7 % (21.3-54.2); Mean Corpuscular HGB Conc 31.9 GM/DL (32-36); Mean Corpuscular Volume 80.6 FL (87-102); Mean Platelet Volume 10.6 FL (9.6-12.0); Monocytes % 6.7 % (1.7-12.7); Platelet Count 249 T/CUMM (130-400); Red Blood Count 3.15 MC/CUMM (3.8-5.5); Red Cell Distribution Width 15.8 % (9.3-17.3)
[2021-07-01 06:25] LABS: Osmolality,Calculated 285.1 MOS/KG (273-304); Potassium 3.5 MMOL/L (3.5-5.1)
[2021-07-01 06:28] LABS: Eosinophils 1 % (0-10); Hypochromia 1+; Lymphocytes 8 % (20-55); Segmented Neutrophils 86 % (50-85); Total Cells Counted 100
[2021-07-01 06:29] LABS: Microcytosis 1+; Ovalocytes Slight; Platelet Estimate Normal; Polychromasia Slight; Tear Drop Cells Slight
[2021-07-01] MEDS: ALUMINUM/MAGNES/SIMETH MAX STR 30 ML UDCUP PO PRN (06:36)
[2021-07-01] MEDS: DOCUSATE SODIUM 100 MG CAPSULE PO PRN (06:36)
[2021-07-01] MEDS ORDERED: LACTULOSE 20 GM/30 ML UDCUP PO PRN (08:54)
[2021-07-01] MEDS ORDERED: MAGNESIUM HYDROXIDE SUSP 30 ML UDCUP PO ONE (09:06)
[2021-07-01] MEDS: PANTOPRAZOLE 40 MG TABLET PO SCH (09:40)
[2021-07-01] MEDS: COLCHICINE 0.6 MG CAPSULE PO SCH ×2 (09:40→20:26)
[2021-07-01] MEDS: IBUPROFEN 400 MG TABLET PO SCH ×3 (09:41→20:26)
[2021-07-01] MEDS: POLYETHYLENE GLYCOL POWDER 17 GM PACK PO SCH ×3 (09:41→20:57)
[2021-07-01] MEDS: DOCUSATE SODIUM 100 MG CAPSULE PO SCH (20:26)
[2021-07-01] MEDS: SENNA 8.6 MG TABLET PO SCH (20:26)
[2021-07-02] MEDS: ALBUTEROL 2.5 MG/3 ML NEB RESP TX SCH ×5 (01:04→23:50)
[2021-07-02] MEDS: VANCOMYCIN INJ 1,250 MG in SODIUM CHLORIDE 0.9% 250 ML IV SCH ×2 (02:07→15:31)
[2021-07-02] MEDS: POLYETHYLENE GLYCOL POWDER 17 GM PACK PO SCH ×4 (03:02→20:32)
[2021-07-02 04:01] LABS: Basophils % 0.2 % (0.0-0.8); Eosinophils # 0.1 10*3/uL (0.0-0.87); Eosinophils % 0.9 % (0.00-10.9); Hemoglobin 7.9 GM/DL (12.0-16.0); Immature Granulocytes % 1.3 %; Immature Granulocytes Absolute 0.19 #; Lymphocytes # 0.8 10*3/uL (1.4-4.0); Lymphocytes % 5.7 % (21.3-54.2); Mean Corpuscular HGB Conc 31.6 GM/DL (32-36); Mean Corpuscular Volume 81.4 FL (87-102); Neutrophils % 84.9 % (38.7-73.9); Platelet Count 228 T/CUMM (130-400); Red Blood Count 3.07 MC/CUMM (3.8-5.5); Red Cell Distribution Width 15.2 % (9.3-17.3); White Blood Count 14.1 T/CUMM (4-12)
[2021-07-02 04:15] LABS: Calcium 8.4 MG/DL (8.5-10.1); Osmolality,Calculated 282.4 MOS/KG (273-304); Potassium 3.5 MMOL/L (3.5-5.1)
[2021-07-02] MEDS: methylPREDNISolone SOD SUC 40 MG/1 ML VIAL IV SCH ×2 (04:33→17:43)
[2021-07-02] MEDS: IBUPROFEN 400 MG TABLET PO SCH ×3 (08:52→20:31)
[2021-07-02] MEDS: LINACLOTIDE 145 MCG CAPSULE PO SCH (08:52)
[2021-07-02] MEDS: DOCUSATE SODIUM 100 MG CAPSULE PO SCH ×2 (08:53→20:31)
[2021-07-02] MEDS: COLCHICINE 0.6 MG CAPSULE PO SCH ×2 (08:53→20:32)
[2021-07-02] MEDS: PANTOPRAZOLE 40 MG TABLET PO SCH (08:53)
[2021-07-02] MEDS: SENNA 8.6 MG TABLET PO SCH (20:31)
[2021-07-03] MEDS: ALBUTEROL 2.5 MG/3 ML NEB RESP TX SCH ×4 (01:15→18:41)
[2021-07-03] MEDS: VANCOMYCIN INJ 1,250 MG in SODIUM CHLORIDE 0.9% 250 ML IV SCH ×2 (03:18→14:15)
[2021-07-03] MEDS: POLYETHYLENE GLYCOL POWDER 17 GM PACK PO SCH ×4 (03:37→20:40)
[2021-07-03] MEDS: methylPREDNISolone SOD SUC 40 MG/1 ML VIAL IV SCH ×2 (04:30→16:02)
[2021-07-03 05:55] LABS: Basophils % 0.3 % (0.0-0.8); Eosinophils # 0.1 10*3/uL (0.0-0.87); Eosinophils % 0.9 % (0.00-10.9); Hematocrit 23.7 VOL% (35.7-47.0); Hemoglobin 7.3 GM/DL (12.0-16.0); Immature Granulocytes % 1.5 %; Immature Granulocytes Absolute 0.18 #; Lymphocytes # 0.7 10*3/uL (1.4-4.0); Lymphocytes % 5.6 % (21.3-54.2); Mean Corpuscular HGB Conc 30.8 GM/DL (32-36); Mean Corpuscular Volume 82.9 FL (87-102); Mean Platelet Volume 11.6 FL (9.6-12.0); Monocytes % 5.9 % (1.7-12.7); Neutrophils % 85.8 % (38.7-73.9); Platelet Count 217 T/CUMM (130-400); Red Blood Count 2.86 MC/CUMM (3.8-5.5); Red Cell Distribution Width 15.2 % (9.3-17.3); White Blood Count 11.9 T/CUMM (4-12)
[2021-07-03 06:10] LABS: Calcium 8.1 MG/DL (8.5-10.1); Osmolality,Calculated 291.7 MOS/KG (273-304); Potassium 3.7 MMOL/L (3.5-5.1)
[2021-07-03] MEDS: COLCHICINE 0.6 MG CAPSULE PO SCH ×2 (09:03→20:25)
[2021-07-03] MEDS: DOCUSATE SODIUM 100 MG CAPSULE PO SCH ×2 (09:03→20:25)
[2021-07-03] MEDS: PANTOPRAZOLE 40 MG TABLET PO SCH (09:03)
[2021-07-03] MEDS: IBUPROFEN 400 MG TABLET PO SCH ×3 (09:03→20:25)
[2021-07-03] MEDS: LINACLOTIDE 145 MCG CAPSULE PO SCH (09:04)
[2021-07-03] MEDS: SENNA 8.6 MG TABLET PO SCH (20:25)
[2021-07-04] MEDS: VANCOMYCIN INJ 1,250 MG in SODIUM CHLORIDE 0.9% 250 ML IV SCH ×2 (01:28→15:29)
[2021-07-04] MEDS: POLYETHYLENE GLYCOL POWDER 17 GM PACK PO SCH ×3 (02:40→15:40)
[2021-07-04] MEDS: methylPREDNISolone SOD SUC 40 MG/1 ML VIAL IV SCH (04:09)
[2021-07-04 06:28] LABS: Ferritin 25.4 ng/mL (8-252)
[2021-07-04 06:46] LABS: Calcium 8.5 MG/DL (8.5-10.1); Osmolality,Calculated 287.1 MOS/KG (273-304); Potassium 3.2 MMOL/L (3.5-5.1)
[2021-07-04 07:20] LABS: Basophils % 0.2 % (0.0-0.8); Eosinophils # 0.4 10*3/uL (0.0-0.87); Eosinophils % 3.6 % (0.00-10.9); Hematocrit 24.8 VOL% (35.7-47.0); Hemoglobin 7.6 GM/DL (12.0-16.0); Immature Granulocytes % 1.3 %; Immature Granulocytes Absolute 0.16 #; Lymphocytes # 0.9 10*3/uL (1.4-4.0); Lymphocytes % 7.5 % (21.3-54.2); Mean Corpuscular HGB Conc 30.6 GM/DL (32-36); Mean Corpuscular Volume 82.7 FL (87-102); Mean Platelet Volume 12.3 FL (9.6-12.0); Monocytes % 6.5 % (1.7-12.7); Neutrophils % 80.9 % (38.7-73.9); Platelet Count 202 T/CUMM (130-400); Red Cell Distribution Width 15.5 % (9.3-17.3); White Blood Count 12.4 T/CUMM (4-12)
[2021-07-04] MEDS ORDERED: POTASSIUM CHLORIDE 20 MEQ TABLET PO ONE (07:25)
[2021-07-04] MEDS: ALBUTEROL 2.5 MG/3 ML NEB RESP TX SCH ×2 (07:32→14:55)
[2021-07-04] MEDS: DOCUSATE SODIUM 100 MG CAPSULE PO SCH (09:11)
[2021-07-04] MEDS: PANTOPRAZOLE 40 MG TABLET PO SCH (09:12)
[2021-07-04] MEDS: COLCHICINE 0.6 MG CAPSULE PO SCH (09:12)
[2021-07-04] MEDS: IBUPROFEN 400 MG TABLET PO SCH ×2 (09:12→15:35)
[2021-07-04] MEDS: LINACLOTIDE 145 MCG CAPSULE PO SCH (09:12)
[2021-07-04 14:05] VITALS: BP 118/69
== END 2021-07-04 16:08 | disposition home or self-care (01) | DRG 981 ==
LOC: N.ED 09:47 → SUATTDRO 14:40 → N.EDINP 14:40 → N.TELES 20:27
PROVIDERS: ADMIT Internal Medicine; ATTEND Internal Medicine
PROC: IRTHORA (2021-06-22 11:05)

== ENCOUNTER 2022-07-12 11:12 | Inpatient (IN) ==
[2022-07-12] MEDS ORDERED: LACTATED RINGERS 1,000 ML IV SCH (12:00)
[2022-07-12] MEDS ORDERED: fentaNYL 100 MCG/2 ML VIAL ONE ×2 (12:47→13:42)
[2022-07-12] MEDS ORDERED: propofoL 200 MG/20 ML VIAL IV ONE (12:47)
[2022-07-12] MEDS ORDERED: LIDOCAINE 2% 5 ML VIAL ONE (12:47)
[2022-07-12] MEDS ORDERED: MIDAZOLAM 2 MG/2 ML VIAL ONE (12:47)
[2022-07-12] MEDS ORDERED: LIDOCAINE 1%/EPI INJ 20 ML VIAL ONE (12:50)
[2022-07-12] MEDS ORDERED: BUPIVACAINE MPF 0.25% 10 ML VIAL ONE (12:50)
[2022-07-12] MEDS ORDERED: SEVOFLURANE 1 UNIT/15 MINUTE INH ONE (13:46)
[2022-07-12] MEDS ORDERED: ONDANSETRON 4 MG/2 ML VIAL ONE (13:46)
[2022-07-12] MEDS ORDERED: ceFAZolin 1,000 MG VIAL ONE (13:49)
[2022-07-12] MEDS ORDERED: PHENYLEPHRINE 1 MG/10 ML SYRINGE IV ONE (13:49)
[2022-07-12] MEDS ORDERED: LACTATED RINGERS 1,000 ML IV ONE (13:50)
[2022-07-12] MEDS ORDERED: KETOROLAC 15 MG/1 ML VIAL IV PRN (13:55)
[2022-07-12] MEDS ORDERED: HYDROmorphone 1 MG/1 ML SYRINGE IV PRN ×2 (13:55)
[2022-07-12] MEDS ORDERED: ONDANSETRON 4 MG/2 ML VIAL IV PRN ×2 (13:55→14:22)
[2022-07-12] MEDS ORDERED: ACETAMINOPHEN 325 MG TABLET PO PRN (13:55)
[2022-07-12] MEDS ORDERED: ALBUTEROL/IPRATROPIUM 3 ML NEB RESP TX PRN (13:55)
[2022-07-12] MEDS: HYDROmorphone 1 MG/1 ML SYRINGE IV PRN ×4 (14:23→15:20)
[2022-07-12] MEDS: LACTATED RINGERS 1,000 ML IV SCH ×2 (16:30→21:19)
[2022-07-13] MEDS: LACTATED RINGERS 1,000 ML IV SCH ×4 (04:57→23:11)
[2022-07-13 06:01] LABS: Basophils # 0.1 10*3/uL (0.0-0.2); Basophils % 0.6 % (0.0-0.8); Eosinophils # 0.1 10*3/uL (0.0-0.87); Eosinophils % 1.6 % (0.00-10.9); Hematocrit 29.5 VOL% (35.7-47.0); Hemoglobin 9.6 GM/DL (12.0-16.0); Immature Granulocytes % 6.2 %; Immature Granulocytes Absolute 0.52 #; Lymphocytes # 0.9 10*3/uL (1.4-4.0); Lymphocytes % 10.6 % (21.3-54.2); Mean Corpuscular HGB Conc 32.5 GM/DL (32-36); Mean Corpuscular Volume 86.5 FL (87-102); Mean Platelet Volume 10.9 FL (9.6-12.0); Monocytes # 0.8 10*3/uL (0.11-0.8); Monocytes % 9.6 % (1.7-12.7); Neutrophils % 71.4 % (38.7-73.9); Platelet Count 257 T/CUMM (130-400); Red Blood Count 3.41 MC/CUMM (3.8-5.5); Red Cell Distribution Width 13.1 % (9.3-17.3); White Blood Count 8.3 T/CUMM (4-12)
[2022-07-13 06:22] LABS: Calcium 8.6 MG/DL (8.5-10.1); Osmolality,Calculated 275.4 MOS/KG (273-304); Potassium 3.4 MMOL/L (3.5-5.1)
[2022-07-13 06:42] LABS: Band Neutrophils 1 % (0-10); Eosinophils 1 % (0-10); Hypochromia Slight; Lymphocytes 11 % (20-55); Microcytosis Slight; Platelet Estimate Adequate; Total Cells Counted 100
[2022-07-13] MEDS ORDERED: MIDAZOLAM 2 MG/2 ML VIAL ONE (08:32)
[2022-07-13] MEDS ORDERED: fentaNYL 100 MCG/2 ML VIAL ONE (08:32)
[2022-07-13] MEDS ORDERED: LIDOCAINE 2% 5 ML VIAL ONE (08:32)
[2022-07-13] MEDS ORDERED: propofoL 200 MG/20 ML VIAL IV ONE (08:32)
[2022-07-13] MEDS ORDERED: ONDANSETRON 4 MG/2 ML VIAL ONE (08:32)
[2022-07-13] MEDS ORDERED: BUPIVACAINE MPF 0.25% 10 ML VIAL ONE (08:49)
[2022-07-13] MEDS ORDERED: LIDOCAINE 1%/EPI INJ 20 ML VIAL ONE (08:49)
[2022-07-13] MEDS ORDERED: PHENYLEPHRINE 1 MG/10 ML SYRINGE IV ONE (08:55)
[2022-07-13] MEDS ORDERED: ACETAMINOPHEN INJ 0 MG/0 ML VIAL IV ONE (09:05)
[2022-07-13] MEDS ORDERED: LACTATED RINGERS 1,000 ML IV ONE (09:08)
[2022-07-13] MEDS ORDERED: SEVOFLURANE 1 UNIT/15 MINUTE INH ONE (09:10)
[2022-07-13] MEDS ORDERED: ONDANSETRON 4 MG/2 ML VIAL IV PRN (09:25)
[2022-07-13] MEDS: HYDROmorphone 1 MG/1 ML SYRINGE IV PRN ×3 (09:28→09:43)
[2022-07-13] MEDS: LINACLOTIDE 145 MCG CAPSULE PO SCH (10:27)
[2022-07-13] MEDS: predniSONE 5 MG TABLET PO SCH (10:27)
[2022-07-13] MEDS: PANTOPRAZOLE 40 MG TABLET PO SCH (11:19)
[2022-07-14] MEDS: predniSONE 5 MG TABLET PO SCH (08:26)
[2022-07-14] MEDS: LINACLOTIDE 145 MCG CAPSULE PO SCH (08:26)
[2022-07-14] MEDS: PANTOPRAZOLE 40 MG TABLET PO SCH (08:26)
[2022-07-14] MEDS: LACTATED RINGERS 1,000 ML IV SCH (08:29)
[2022-07-14 11:28] VITALS: BP 109/54
[2022-07-14] MEDS ORDERED: SODIUM HYPOCHLORITE 0.25% IRRIG 473 ML BOTTLE TOP SCH (11:30)
== END 2022-07-14 14:28 | disposition home health service (06) | DRG 264 ==
LOC: N.OR 11:12 → N.SDSINP 11:12 → N.3E 13:56
PROVIDERS: ADMIT Surgery; ATTEND Surgery